=== PATIENT | female | born 1950 | race Caucasian/White ===

== ENCOUNTER 2017-09-16 08:18 | Outpatient (CLI) | payer MEDICARE, BC ==
[2011-07-25 08:34] VITALS: BMI 28.3
== END 2017-09-16 08:19 | disposition home or self-care (01) ==
LOC: D.MAMMO 08:18
DX: Z12.31 Encounter for screening mammogram for malignant neoplasm of breast (principal)

== ENCOUNTER → 2017-10-14 13:14 | Outpatient (CLI) | payer MEDICARE, BC ==
[2011-07-25 08:34] VITALS: BMI 28.3
== END | disposition home or self-care (01) ==
LOC: D.MRI 13:14
DX: M79.671 Pain in right foot (principal)

== ENCOUNTER → 2017-12-18 11:40 | Outpatient (CLI) | payer MEDICARE, BC ==
[2011-07-25 08:34] VITALS: BMI 28.3
== END | disposition home or self-care (01) ==
LOC: D.CT 11:40
DX: I77.9 Disorder of arteries and arterioles, unspecified (principal)